=== PATIENT | female | born 2000 | race African-American/Black ===

== ENCOUNTER 2023-01-11 02:26 | Emergency (ER) | payer MEDICAID, OTHER ==
[~2023-01-11] VITALS: Ht 160 cm; Wt 88.7 kg
[2023-01-11 03:18] VITALS: BP 113/78; O2SAT 98
[2023-01-11] MEDS ORDERED: TOPUD PO (05:49)
[2023-01-11] MEDS ORDERED: AMOX1TAB16 PO (05:49)
[2023-01-11 05:59] VITALS: PULSE 80; RESP 15; TEMP 97.8
[2023-01-11] MEDS ORDERED: ACETAMINOPHEN 325MG TABLET PO ONE (06:00)
== END 2023-01-11 06:02 | disposition home or self-care (01) ==
LOC: ER 02:26
DX: J02.9 Acute pharyngitis, unspecified (principal)
CPT/HCPCS: 81025; 87070; 87430; 99283